=== PATIENT | female | born 1935 | race Two or more races ===

== ENCOUNTER 2024-09-24 18:34 | Inpatient (IN) | payer OTHER ==
[~2024-09-24] VITALS: Ht 167.6 cm; Wt 74.8 kg
[2024-09-24] MEDS ORDERED: ADULT LOW DOSE81 M1 (18:44)
[2024-09-24] MEDS ORDERED: GLIMEPIRIDE4 M1 (18:44)
[2024-09-24] MEDS ORDERED: COZAAR100 MG (18:44)
[2024-09-24] MEDS ORDERED: METFORMIN HCL1000 M3 (18:44)
[2024-09-24] MEDS ORDERED: [UNRECOGNIZED DRUG - OTHER] (18:45)
[2024-09-24] MEDS ORDERED: MEMANTINE HCL10 MG (18:46)
[2024-09-24] MEDS ORDERED: METOPROLOL SUCC50 MG (18:46)
[2024-09-24] MEDS ORDERED: SIMVASTATIN5 MG (18:46)
[2024-09-24] MEDS ORDERED: ARICEPT10 MG (18:47)
--- NOTE | 2024-09-24 18:52 | NUR ---
SE RECIBE PTE EN AMBULANCIA CON DX ALZHAIMER ALERTA Y SIGUIENDO COMANDOS EN AMBULANCIA EN COMPANIA DE FAMILIAR,PARAMEDICOS REFIEREN ACTIVADOS POR GLUCOSA CARMITA.AL MOMENTO PRESENTA 457MG/DL,SE OBSERVA HEMATOMA PERIORBITAL EN ALICE RT,RODILLA RT INFLAMADA Y ACORTAMIENTO DE LA EXTREMIDAD.REFIEREN PTE SE RENETTA HACE 3 OLMSTEAD.CANALIZADA EN ANTEBRAZO RT CON .9NSS Y CANULA NASAL @ 2LTS.
[2024-09-24] MEDS ORDERED: 0.9 % SODIUM CHLORIDE 1,000 ML IV STA (20:07)
[2024-09-24] MEDS ORDERED: MORPHINE SULFATE 4 MG/ML VIAL IV STA (20:07)
[2024-09-24 20:54] LABS: BASO % 0.2 % (0.1-1.2); EOS # 0.02 (0.04-0.54); EOS % 0.2 % (0.7-7.0); LYMPH # 1.44 (1.18-3.74); LYMPH % 13.9 % (19.3-53.1); MEAN PLATELET VOLUME 9.30 fl (9.4-12.4); MONO # 0.85 (0.24-0.82); MONO % 8.2 % (4.7-12.5); NEUT # 7.96 (1.56-6.13); NEUT % 76.9 % (34.0-71.1); RED CELL DISTRIBUTION WIDTH 13.1 % (11.6-14.4)
[2024-09-24 21:14] LABS: INR 1.0
[2024-09-24 21:19] LABS: ALT/SGPT 22.0 U/L (12-78); AST/SGOT 15.0 U/L (15-37); BILIRUBIN TOTAL 0.71 mg/dL (0.3-1.2); BUN CREA RATIO 26.0 (7.0-25.0); CREATININE SERUM 0.97 mg/dL (0.55-1.02); GFR 54.07; GLOBULINA 2.5 G/DL (2.4-3.5); OSMOLALITY SERUM 295.0 MOSM/KG (275-295)
[2024-09-24] MEDS ORDERED: INSULIN REGULAR, HUMAN 1,000 UNIT/10 ML UNITS IV STA (21:28)
[2024-09-24 21:29] LABS: GLUCOSE FASTING 437.0 mg/dL (65-100)
[2024-09-24] MEDS ORDERED: INSULIN REGULAR, HUMAN 1,000 UNIT/10 ML UNITS SUBCUTANEO STA (21:29)
[2024-09-24 22:34] LABS: URINE APPEARANCE Clear; URINE BILIRRUBIN Negative (NEGATIVE); URINE BLOOD Small; URINE COLOR Yellow; URINE KETONE 15 (NEGATIVE); URINE LEUKOCYTE Negative; URINE NITRATE Positive; URINE PROTEIN Negative (NEGATIVE); URINE UROBILINOGEN 0.2 E.U./dl
--- NOTE | 2024-09-24 22:36 | NUR ---
SE ORIENTA A PACIENTE SOBRE [place] MEDICO, REFIERE ENTENDER. SE REALIZAN MUESTRAS DE LABORATORIO BAJO MEDIDAS ASEPTICAS. SE ADMINISTRAN MEDICAMENTOS CICI ORDEN MEDICA. SE INSERTA SONDA URINARIA BAJO MEDIDAS ESTERILES. SE REALIZA EKG. SE COORDINAN EARLENE X Y CT.
[2024-09-24 22:37] LABS: URINE EPITHELIAL CELLS 8.1 uL (0.0-38.8); URINE RBC 4.6 uL (0.0-20.8); URINE WBC 77.0 uL (0.0-23.2)
[2024-09-24 22:40] LABS: URINE BACTERIA > 9821.5 uL (0.0-1933); URINE CAST 0.43 uL (0.0-1.40); URINE GLUCOSE >=1000 MG/DL (NEGATIVE)
[2024-09-24] MEDS ORDERED: CEFTRIAXONE SODIUM 2,000 MG in 0.9 % SODIUM CHLORIDE 100 ML IV SCH (23:33)
[2024-09-24] MEDS ORDERED: DONEPEZIL HCL 10 MG TABLET PO SCH (23:34)
[2024-09-24] MEDS ORDERED: FAMOTIDINE/PF 20 MG in 0.9 % SODIUM CHLORIDE 8 ML IV PUSH SCH (23:34)
[2024-09-24] MEDS ORDERED: 0.9 % SODIUM CHLORIDE 1,000 ML IV SCH (23:45)
[2024-09-24] MEDS ORDERED: DEXTROSE 50 % IN WATER 0.5 G/ML VIAL IV PRN (23:45)
[2024-09-24] MEDS ORDERED: MORPHINE SULFATE 4 MG/ML CARTRIDGE IV PRN (23:45)
[2024-09-24] MEDS ORDERED: INSULIN LISPRO 1,000 UNIT/10 ML UNITS SUBCUTANEO PRN (23:45)
[2024-09-24] MEDS ORDERED: ACETAMINOPHEN 500 MG GEL..CAP PO PRN (23:45)
[2024-09-25 03:40] VITALS: BP 157/83
[2024-09-25 05:00] VITALS: BP 116/77
[2024-09-25] MEDS ORDERED: METOPROLOL SUCCINATE 50 MG TAB.SR.24H PO SCH (09:00)
[2024-09-25 09:47] VITALS: BP 143/79; O2SAT 96
[2024-09-25] MEDS ORDERED: ENOXAPARIN SODIUM 40 MG/0.4 ML SYRINGE SUBCUTANEO NR (10:00)
[2024-09-25 14:58] LABS: ABG PH 7.410 (7.35-7.45); ABG PO2 112.5 mmHg (80-100); BICARBONATE 23.6 mmol/l (23-25); o2 21 %
[2024-09-25 17:36] VITALS: BP 152/84; O2SAT 98
[2024-09-25 20:59] LABS: BASO % 0.3 % (0.1-1.2); EOS # 0.11 (0.04-0.54); EOS % 1.2 % (0.7-7.0); LYMPH # 1.45 (1.18-3.74); LYMPH % 16.1 % (19.3-53.1); MEAN PLATELET VOLUME 9.40 fl (9.4-12.4); MONO # 0.72 (0.24-0.82); MONO % 8.0 % (4.7-12.5); NEUT # 6.66 (1.56-6.13); NEUT % 73.8 % (34.0-71.1); RED CELL DISTRIBUTION WIDTH 13.6 % (11.6-14.4)
[2024-09-26 00:51] VITALS: BP 151/88; O2SAT 98
[2024-09-26 08:30] VITALS: BP 133/78
[2024-09-26] MEDS ORDERED: ENOXAPARIN SODIUM 40 MG/0.4 ML SYRINGE SUBCUTANEO SCH (09:00)
[2024-09-26 18:52] VITALS: BP 135/72; O2SAT 98
[2024-09-27 01:43] VITALS: BP 116/74; O2SAT 95
[2024-09-27 08:11] VITALS: BP 111/64
[2024-09-27] MEDS ORDERED: INSULIN NPH HUM/REG INSULIN HM 1,000 UNIT/10 ML UNITS SUBCUTANEO STA (10:01)
[2024-09-27 16:34] VITALS: BP 132/81
[2024-09-28 02:00] VITALS: BP 133/77; O2SAT 95
[2024-09-28] MEDS ORDERED: INSULIN NPH HUM/REG INSULIN HM 1,000 UNIT/10 ML UNITS SUBCUTANEO SCH (08:00)
[2024-09-28 08:19] LABS: ALT/SGPT 16.0 U/L (12-78); AST/SGOT 12.0 U/L (15-37); BILIRUBIN TOTAL 0.87 mg/dL (0.3-1.2); BUN CREA RATIO 21.0 (7.0-25.0); CREATININE SERUM 0.38 mg/dL (0.55-1.02); GFR 159.46; GLOBULINA 2.2 G/DL (2.4-3.5); GLUCOSE FASTING 150.0 mg/dL (65-100); OSMOLALITY SERUM 282.0 MOSM/KG (275-295)
[2024-09-28 08:57] LABS: BASO % 0.6 % (0.1-1.2); EOS # 0.16 (0.04-0.54); EOS % 1.9 % (0.7-7.0); LYMPH # 1.63 (1.18-3.74); LYMPH % 19.9 % (19.3-53.1); MEAN PLATELET VOLUME 9.30 fl (9.4-12.4); MONO # 0.73 (0.24-0.82); MONO % 8.9 % (4.7-12.5); NEUT # 5.60 (1.56-6.13); NEUT % 68.2 % (34.0-71.1); RED CELL DISTRIBUTION WIDTH 14.1 % (11.6-14.4)
[2024-09-28 09:11] VITALS: BP 125/60
[2024-09-28 16:24] VITALS: BP 145/76; O2SAT 97
[2024-09-29 03:00] VITALS: BP 133/74; O2SAT 95
[2024-09-29] MEDS ORDERED: CEFTRIAXONE SODIUM 2,000 MG VIAL IV ONE (12:45)
[2024-09-29] MEDS ORDERED: BUPIVACAINE HCL 30 ML VIAL IV ONE (12:45)
[2024-09-29] MEDS ORDERED: TRANEXAMIC ACID 100MG/1ML (1000MG) AMPUL IV ONE (12:45)
[2024-09-29] MEDS ORDERED: BUPIVACAINE HCL/PF 0.25% 30ML VIAL InF ONE (12:45)
[2024-09-29] MEDS ORDERED: ISOPROPYL ALCOHOL 30 ML OUNCE TOP ONE (13:00)
[2024-09-29] MEDS ORDERED: TRAMADOL HCL 50 MG TABLET PO PRN (14:30)
[2024-09-29] MEDS ORDERED: ONDANSETRON 4 MG TAB.RAPDIS PO PRN (14:30)
[2024-09-29] MEDS ORDERED: SODIUM CHLORIDE 0.45 % 1,000 ML IV SCH (14:30)
[2024-09-29] MEDS ORDERED: ONDANSETRON HCL 2 MG/ML VIAL IV PRN (14:30)
[2024-09-29 20:50] VITALS: BP 150/73; O2SAT 95
[2024-09-30 00:26] VITALS: BP 138/74; O2SAT 98
[2024-09-30 06:55] LABS: URINE APPEARANCE Turbid; URINE BILIRRUBIN Negative (NEGATIVE); URINE BLOOD Trace; URINE COLOR Yellow; URINE GLUCOSE Negative (NEGATIVE); URINE KETONE Negative (NEGATIVE); URINE LEUKOCYTE Large; URINE NITRATE Negative; URINE PROTEIN Trace (NEGATIVE); URINE UROBILINOGEN 0.2 E.U./dl
[2024-09-30 06:59] LABS: URINE CAST 2.93 uL (0.0-1.40); URINE EPITHELIAL CELLS 123.2 uL (0.0-38.8); URINE RBC 97.3 uL (0.0-20.8); URINE WBC 1499.8 uL (0.0-23.2)
[2024-09-30 07:05] LABS: BASO % 0.2 % (0.1-1.2); EOS # 0.06 (0.04-0.54); EOS % 0.5 % (0.7-7.0); LYMPH # 0.91 (1.18-3.74); LYMPH % 7.4 % (19.3-53.1); MEAN PLATELET VOLUME 8.60 fl (9.4-12.4); MONO # 0.92 (0.24-0.82); MONO % 7.5 % (4.7-12.5); NEUT # 10.23 (1.56-6.13); NEUT % 83.7 % (34.0-71.1); RED CELL DISTRIBUTION WIDTH 14.3 % (11.6-14.4)
[2024-09-30 07:14] LABS: URINE BACTERIA > 9821.5 uL (0.0-1933)
[2024-09-30 07:17] LABS: URINE CRYSTALS FEW /HPF
[2024-09-30 08:00] VITALS: BP 174/81; O2SAT 98
[2024-09-30] MEDS ORDERED: RIVAROXABAN 10 MG TAB PO SCH (09:00)
[2024-09-30 12:00] VITALS: BP 128/83; O2SAT 98
[2024-09-30 15:51] LABS: COVID-19 AG NEGATIVE (NEGATIVE)
[2024-09-30 17:32] VITALS: BP 163/87; O2SAT 98
[2024-10-01 00:30] VITALS: BP 96/64; O2SAT 97
[2024-10-01 06:49] LABS: BASO % 0.3 % (0.1-1.2); EOS # 0.23 (0.04-0.54); EOS % 2.1 % (0.7-7.0); LYMPH # 1.37 (1.18-3.74); LYMPH % 12.2 % (19.3-53.1); MEAN PLATELET VOLUME 9.00 fl (9.4-12.4); MONO # 1.29 (0.24-0.82); MONO % 11.5 % (4.7-12.5); NEUT # 8.14 (1.56-6.13); NEUT % 72.7 % (34.0-71.1); RED CELL DISTRIBUTION WIDTH 14.4 % (11.6-14.4)
[2024-10-01 09:52] VITALS: BP 148/90; O2SAT 98
[2024-10-01 14:24] LABS: COVID-19 AG NEGATIVE (NEGATIVE)
[2024-10-01 16:00] VITALS: BP 153/91; O2SAT 100
== END 2024-10-01 22:44 | DRG 481 ==
LOC: ER 18:34 → MEDJ 23:36 → SURH 09-29 16:43
PROVIDERS: Internal Medicine; Internal Medicine Infectious Disease; Orthopaedic Surgery; ADMIT Internal Medicine; ATTEND Internal Medicine
PROC: 0T9B70Z Drainage of Bladder with Drainage Device, Via Natural or Artificial Opening (ICD-10-PCS; 2024-09-24)
PROC: B020ZZZ Computerized Tomography (CT Scan) of Brain (ICD-10-PCS; 2024-09-24)
PROC: 30233N1 Transfusion of Nonautologous Red Blood Cells into Peripheral Vein, Percutaneous Approach (ICD-10-PCS; 2024-09-25)
PROC: 0QU60KZ Supplement Right Upper Femur with Nonautologous Tissue Substitute, Open Approach (ICD-10-PCS; 2024-09-29)
PROC: 0QS606Z Reposition Right Upper Femur with Intramedullary Internal Fixation Device, Open Approach (ICD-10-PCS; principal; 2024-09-29 07:00)
PROC: 0S9C3ZZ Drainage of Right Knee Joint, Percutaneous Approach (ICD-10-PCS; 2024-10-01)
DX: S72.21XA Displaced subtrochanteric fracture of right femur, initial encounter for closed fracture (principal); N39.0 Urinary tract infection, site not specified; M25.461 Effusion, right knee; D64.89 Other specified anemias; E11.65 Type 2 diabetes mellitus with hyperglycemia; G30.8 Other Alzheimer's disease; E78.5 Hyperlipidemia, unspecified; F02.C0 Dementia in other diseases classified elsewhere, severe, without behavioral disturbance, psychotic disturbance, mood disturbance, and anxiety; W01.0XXA Fall on same level from slipping, tripping and stumbling without subsequent striking against object, initial encounter; Y92.039 Unspecified place in apartment as the place of occurrence of the external cause; B96.20 Unspecified Escherichia coli [E. coli] as the cause of diseases classified elsewhere; Z79.84 Long term (current) use of oral hypoglycemic drugs